=== PATIENT | male | born 1995 | race Caucasian/White ===

== ENCOUNTER 2020-05-26 14:58 | Observation (INO) | payer SELFPAY ==
--- NOTE | ~2020-05-26 | XR_ITS ---
EXAMINATION: XR chest 2V DATE: 05/26/2020 15:43 INDICATION: Transient alteration of awareness TECHNIQUE: AP and lateral views of the chest are obtained. COMPARISON: None available FINDINGS: The lungs are free of acute opacities. There is no pleural effusion or pneumothorax. The ca rdiomediastinal silhouette is normal. The visualized bones and soft tissues are unremarkable. IMPRESSION: 1. No acute cardiopulmonary abnormality. Reviewed, dictated and finalized at location A.
--- NOTE | ~2020-05-26 | CT_ITS ---
EXAMINATION: CT brain wo con INDICATION: Head injury, confusion COMPARISON: None TECHNIQUE: Standard unenhanced head CT. The dose-length product (DLP) was 605.33 mGy-cm. The mA was a djusted according to patient size. Iterative reconstruction technique was employed. FINDINGS: There is no intracranial hemorrhage, acute infarction, or abnormal mass lesion. The ventric les are normal. There is no abnormal mass effect or midline shift. The parmar-white matter differentiat ion is normal. The basal cisterns are patent. The orbits are normal. The paranasal sinuses, mastoids and calvarium are normal. IMPRESSION: 1. No acute intracranial abnormality. Reviewed, dictated and finalized at location A.
--- NOTE | 2020-05-26 15:02 | ED.GENADULT ---
HPI - General Adult General Chief complaint: Altered Mental Status Stated complaint: ams Time Seen by Provider: 05/26/20 15:02 Source: patient and EMS Mode of arrival: EMS Limitations: clinical condition History of Present Illness HPI narrative: Pt presented for evaluation of AMS. Patient history provided by EMS. Patient apparently on a full trip this weekend with friends. They were traveling back to where they are from, when friend friend who drove back patient from float trip called EMS after patient had seizure like activity today while in car. Shaking activity lasted approximately 1 minute. Per friend, patient had taken a Xanax bar. Patient with heavy alcohol intake this weekend per friend. Pt with emesis, pinpoint pupils for EMS. Pt agitated and slightly combative for EMS. Glucose 190. Patient given small dose of intranasal Narcan by EMS and transported to our facility for assessment. Related Data Home Medications Medication Instructions Recorded Confirmed No Home Medications 05/26/20 05/26/20 Allergies Allergy/AdvReac Type Severity Reaction Status Date / Time No Known Allergies Allergy Verified 05/26/20 15:15 Review of Systems Review of Systems: Narrative: Unable to obtain secondary to intoxication PMFSH Social History Social History Gender identity (if verbalized by the patient): Male Exam Narrative: Exam Narrative: GENERAL: Somnolent, minimally conversant HEAD: Normocephalic, abrasion to forehead and nasal bridge EYES: 1+ PERRLA and EOMI. ENT: Nares clear, no rhinorrhea or epistaxis. Mucous membranes dry NECK: Supple. CHEST: No respiratory distress, breathing even and non labored HEART: Tachycardic rate, sinus rhythm ABDOMEN:Non distended, non tender EXTREMITIES: Normal range of motion. No edema. SKIN: Warm, dry, no rash. NEURO:No focal deficits. Alert and oriented x 3, can identify name, knows he is at a hospital, he knows what month it is Course Vital Signs Vital signs: Vital Signs Temperature 36.8 C 05/26/20 15:09 Pulse Rate 125 H 05/26/20 15:09 Respiratory Rate 17 05/26/20 15:09 Blood Pressure 168/71 H 05/26/20 15:09 Pulse Oximetry 96 05/26/20 15:09 Temperature 36.8 C 05/26/20 15:09 Pulse Rate 125 H 05/26/20 15:09 Respiratory Rate 17 05/26/20 15:09 Blood Pressure 168/71 H 05/26/20 15:09 Pulse Oximetry 96 05/26/20 15:09 Medical Decision Making MDM Narrative Medical decision making narrative: Patient presented for evaluation of possible seizure-like activity in the history of known substance abuse. At the time of initial assessment, patient is slightly confused, but otherwise neurologically intact, alert and oriented to person, place and to time. Patient denying any pain. Laboratory results notable for leukocytosis and lactic acidosis. In the setting of tachycardia this is concerning for sepsis, will go ahead and give the patient 30 mL/kg and start IV section antibiotics. Lactic acidosis may be secondary to possible seizure-like activity versus substance abuse, and we could just have a leukemoid reaction from all the substance abuse and vomiting that the patient has been having. No acute kidney injury. CK is not elevated, not indicative of rhabdomyolysis. Patient tachycardia improved following fluids. At this point, patient would benefit from observation so we can trend vital signs and monitor patient for recurrent seizure activity. Patient does not have any seizure history. No UTI. Spoke with hospitalist, will hold off on neurology for now given seizure just may be due to dehydration and abuse. Patient admitted in stable condition to telemetry. Vital Signs Vital Signs: Vital Signs Temperature 36.8 C 05/26/20 15:09 Pulse Rate 125 H 05/26/20 15:09 Respiratory Rate 17 05/26/20 15:09 Blood Pressure 168/71 H 05/26/20 15:09 Pulse Oximetry 96 05/26/20 15:09 Temperature 36.8 C 05/26/20 15:09 Pulse Rate 125 H 05/26/20 15:09 Re
[2020-05-26 15:09] VITALS: BP 168/71; PULSE 125; RESP 17; TEMP 36.8; O2SAT 96
[2020-05-26 15:19] LABS: Hematocrit 50.4 % (42.0-52.0); Hemoglobin 17.1 g/dL (14.0-18.0); Mean Corpuscular HGB Conc 33.9 g/dl (32-36); Mean Corpuscular Hemoglobin 31.8 pg (26-34); Mean Corpuscular Volume 93.7 fl (80-100); Mean Platelet Volume 8.6 fl (7.4-10.4); Platelet Count Result 551 k/mm3 (150-375); Red Blood Count 5.38 M/mm3 (4.6-6.20); Red Cell Distribution Width 13.1 % (11.5-14.5); White Blood Count 26.6 K/mm3 (4.5-10.0)
--- NOTE | 2020-05-26 15:31 | ECG_ITS ---
Measurements Intervals Medon Rate: 128 P: 76 NC: 140 QRS: 110 QRSD: 96 T: 63 QT: 313 QTc: 457 Interpretive Statements SINUS TACHYCARDIA RIGHT AXIS DEVIATION INCOMPLETE RIGHT BUNDLE BRANCH BLOCK DELAYED PRECORDIAL R/S TRANSITION MINIMAL Q WAVES- ANTEROLAT/INF LEADS ABNORMAL ECG Electronically Signed On 05-26-2020 17:13:07 CDT by Vaughn Barfield D.O.
[2020-05-26 15:34] LABS: Ethanol < 10 mg/dL (<10)
[2020-05-26 15:37] LABS: Band Neutrophils Percent 2 % (0-6); Lymphocytes Absolute Manual 1.59 K/mm3 (1.1-4.5); Monocytes Absolute Manual 1.33 K/mm3 (0.1-0.90); Monocytes Percent Manual 5 % (3-9); Neutrophils Absolute Manual 23.67 K/mm3 (1.3-6.7); Neutrophils Percent Manual 87 % (46-73); Platelet Estimate Increased (Adequate); Total Cells Counted 100
[2020-05-26 15:47] LABS: Albumin Level 5.3 g/dL (3.5-5.1); Alkaline Phosphatase 179 U/L (38-126); Bilirubin,Total 0.8 mg/dL (0.2-1.3); Blood Urea Nitrogen 14 mg/dL (9-20); Calcium 9.7 mg/dL (8.4-10.2); Carbon Dioxide 10 mmol/L (22-30); Chloride 98 mmol/L (98-107); Estimated CRCL calculation 84 ml/min; Estimated Glomerular Filt Rate > 60; Glucose 264 mg/dL (75-110); Potassium 3.7 mmol/L (3.4-5.0); Sodium 138 mmol/L (137-145)
[2020-05-26 15:49] LABS: Magnesium 2.9 mg/dL (1.6-2.3); Phosphorus 5.1 mg/dL (2.5-4.5)
[2020-05-26] MEDS: SODIUM CHLORIDE 0.9% IV 1,000 ML 999 ML IV CONT (15:54)
[2020-05-26 15:57] LABS: Alanine Aminotransferase 46 U/L (4-50); Aspartate Amino Transferase 61 U/L (17-59)
[2020-05-26 15:58] LABS: INR 1.1; Partial Thromboplastin Time 23.5 SECONDS (22.3-36.8); Prothrombin Time 13.7 Seconds (11.1-14.7)
[2020-05-26 16:01] LABS: Troponin I < 0.012 ng/mL (0.000-0.034)
[2020-05-26 16:10] LABS: Lactic Acid Reflex 5.9 mmol/L (0.7-2.1)
[2020-05-26 16:37] LABS: Creatine Kinase 181 U/L (55-170)
[2020-05-26] MEDS: METOCLOPRAMIDE HCL INJ 10 MG/2 ML VIAL IV PUSH (16:45)
[2020-05-26 16:54] LABS: Add Urine Microscopic? YES; Appearance Urine Clear (Clear); Bilirubin Urine Negative (Negative); Blood Urine 1+ (Negative); Color Urine Straw (Yellow); Glucose Urine UA 1+ mg/dL (Negative); Ketones Urine 2+ mg/dL (Negative); Leukocyte Esterase Ur Negative LEU/UL (Negative); Mucus Urine Rare /lpf; Nitrate Urine Negative (Negative); Protein Urine 2+ mg/dL (Negative); Specific Grav Ur 1.021 (1.001-1.035); Squamous Epithelial Cell Urine Rare /hpf (Few); Urobilinogen Urine Negative mg/dL (<2.0); WBC Urine 0-3 /hpf
[2020-05-26 17:09] LABS: Amphetamine Screen Urine Negative (Negative); Barbiturate Screen Urine Negative (Negative); Benzodiazepines Screen Urine Negative (Negative); Cannabinoid Screen Urine Positive (Negative); Cocaine Screen Urine Negative (Negative); Methadone Screen Urine Negative (Negative); Opiate Screen Urine Negative (Negative); Phencyclidine Screen Urine Negative (Negative)
--- NOTE | 2020-05-26 18:00 | PM.IMHP ---
H&P: HPI History of Present Illness Chief complaint: Seizure. Narrative: Preet Latham is a previously healthy 25-year-old male who presented to the emergency department earlier this afternoon via EMS for evaluation of altered mental status after a seizure. His memory regarding the events that transpired today is poor, and as such some of this medical history is obtained via a review of his electronic medical records. The patient and his friends were on their way home from a float trip today and it sounds as though there was heavy amounts of alcohol consumption during the trip in addition to possible recreational drug use including marijuana, cocaine, and Xanax (according to friends). The patient began having nausea and vomiting today and not long prior to arrival to the emergency department he had a witnessed seizure lasting approximately 1 minutes time. On EMS arrival he was postictal and combative, but he is now alert and oriented and calm/cooperative. He does admit to drinking heavily and using marijuana, but he denies cocaine and Xanax use to me. Drug screen is positive for marijuana only. He is adamant that he does not use Xanax. With regards to alcohol, he admits to drinking almost every other day, typically in large quantities. He has never had signs or symptoms of alcohol withdrawal, however. Mother and brother both have epilepsy, but he has no history of seizures. At this time he is tired but has no other complaints. Review of Systems Review of Systems: Narrative: Twelve systems were reviewed with pertinent positives and negatives as per HPI. No fever, chills, or sweats. He did sustain abrasions and contusions to the nose and forehead during the seizure. He denies headache, auditory, and visual changes. No chest pain or shortness of breath. He denies cough. No cold or flu symptoms. No sick contacts. Except as documented, all other systems were reviewed and are negative. [facility] Past Medical History Medical History (Updated 05/26/20 @ 22:53 by Urmila Bunn PA-C) Alcohol abuse No significant past medical history Surgical History Surgical History (Updated 05/26/20 @ 22:48 by Urmila Bunn PA-C) No history of previous surgery Family History Family History (Updated 05/26/20 @ 22:49 by Urmila Bunn PA-C) Sibling Asthma Mother Asthma Epilepsy Sibling Epilepsy Social History Social History (Updated 05/26/20 @ 22:49 by Urmila Bunn PA-C) Social History: Surrogate decision maker: Marlys, grandmother. Code status: Full code. Smoking status: Never smoker Alcohol intake: current Drinks per week: 40 Substance use: current Substance use type: marijuana Additional living arrangements comments: The patient lives in [place], [place] with his grandparents. Additional occupation/education comments: He is not currently employed nor does he go to school. Gender identity (if verbalized by the patient): Male Spiritual care concerns: No Meds Home Medications and Allergies Home Medications Medication Instructions Recorded Confirmed Type No Home Medications 05/26/20 05/26/20 History Allergies Allergy/AdvReac Type Severity Reaction Status Date / Time No Known Allergies Allergy Verified 05/26/20 15:15 Vital Signs Vital Signs - 24 hr 05/26/20 15:09 05/26/20 18:23 05/26/20 18:47 Temperature 98.2 F 99.9 F H Pulse Rate 125 H 106 H 108 H Respiratory Rate 17 18 17 Blood Pressure 168/71 H 128/76 148/89 H Pulse Oximetry 96 96 100 05/26/20 21:48 Temperature 98.8 F Pulse Rate 110 H Respiratory Rate 16 Blood Pressure 122/69 Pulse Oximetry 99 Exam Narrative: Exam Narrative: General: Well-developed, mildly ill-appearing male lying on his left side in bed in no distress. HEENT: Contusions along the mid forehead. There is a small abrasion on the left side of the nasal bridge. Pupils are approximately 3 to 4 millimeters and are reactive
[2020-05-26 18:23] VITALS: BP 128/76; PULSE 106; RESP 18; O2SAT 96
[2020-05-26 18:47] VITALS: BP 148/89; PULSE 108; RESP 17; TEMP 37.7; O2SAT 100; BMI 18.3
--- NOTE | 2020-05-26 18:47 | ADMGEN ---
This patient, Preet Latham, was admitted to Medical Room 249-01. Patient/family oriented to hospital policies and general routines including ID bracelet, bed and alarms, visiting hours, pain management, procedures, bathroom and other care routines, personal items, smoking policy, room service/diet, and visiting hours. Valuables list has been completed. Information on how to activate the Rapid Response Team has been discussed. Patient/Family are encouraged to report perceived risks to care and to ask questions if they do not understand what they are told or what they should do.
[2020-05-26 18:51] LABS: Reflex Lactic Acid Yes or No Add Lactic
[2020-05-26 19:13] LABS: Lactic Acid 1.4 mmol/L (0.7-2.1)
[2020-05-26 19:28] LABS: Troponin I 0.044 ng/mL (0.000-0.034)
[2020-05-26 19:48] LABS: Hemoglobin A1C 5.1 % (<5.7)
[2020-05-26 20:00] VITALS: PULSE 103
[2020-05-26] MEDS: ONDANSETRON INJ 4 MG/2 ML VIAL IV PUSH (20:23)
[2020-05-26 21:48] VITALS: BP 122/69; PULSE 110; RESP 16; TEMP 37.1; O2SAT 99
[2020-05-26 22:13] LABS: Blood Urea Nitrogen 12 mg/dL (9-20); CRP 0.8 mg/dL (<1.0); Calcium 8.4 mg/dL (8.4-10.2); Carbon Dioxide 22 mmol/L (22-30); Chloride 102 mmol/L (98-107); Creatine Kinase 253 U/L (55-170); Estimated CRCL calculation 101 ml/min; Estimated Glomerular Filt Rate > 60; Glucose 135 mg/dL (75-110); Lactate Dehydrogenase 470 U/L (313-618); Potassium 3.9 mmol/L (3.4-5.0); Sodium 135 mmol/L (137-145)
[2020-05-26 22:26] LABS: Troponin I 0.046 ng/mL (0.000-0.034)
[2020-05-27] VITALS: PULSE 93
[2020-05-27] MEDS: SODIUM CHLORIDE 0.9% IV 1,000 ML 125 ML IV CONT ×2 (00:19→06:08)
[2020-05-27] MEDS: ONDANSETRON INJ 4 MG/2 ML VIAL IV PUSH (01:20)
[2020-05-27] MEDS: FAMOTIDINE 20 MG/2 ML VIAL IV PUSH ×2 (02:58→07:45)
[2020-05-27] MEDS: SUCRALFATE SUSP 100 MG/ML 10 ML UDC 1000 MG PO ×2 (02:58→06:08)
[2020-05-27 04:00] VITALS: PULSE 77
[2020-05-27 05:33] LABS: Basophils Percent Auto 0.2 % (0.2-1.2); Eosinophils Percent Auto 0.1 % (0-4.4); Hematocrit 39.9 % (42.0-52.0); Hemoglobin 13.8 g/dL (14.0-18.0); Immature Granulocyte Absolute 0.08 K/mm3 (0.00-0.031); Immature Granulocyte Percent A 0.4 % (0-0.5); Lymphocytes Absolute Auto 1.21 K/mm3 (0.9-3.2); Lymphocytes Percent Auto 6.5 % (18.3-44.2); Mean Corpuscular HGB Conc 34.6 g/dl (32-36); Mean Corpuscular Hemoglobin 31.5 pg (26-34); Mean Corpuscular Volume 91.1 fl (80-100); Mean Platelet Volume 8.6 fl (7.4-10.4); Monocytes Absolute Auto 1.7 K/mm3 (0.1-0.6); Monocytes Percent Auto 9.4 % (2.6-8.5); Neutrophils Absolute Auto 15.5 K/mm3 (1.3-6.7); Neutrophils Percent Auto 83.4 % (45.5-73.1); Platelet Count Result 359 k/mm3 (150-375); Red Blood Count 4.38 M/mm3 (4.6-6.20); Red Cell Distribution Width 13.1 % (11.5-14.5); White Blood Count 18.6 K/mm3 (4.5-10.0)
[2020-05-27 05:43] LABS: INR 1.1; Partial Thromboplastin Time 25.9 SECONDS (22.3-36.8); Prothrombin Time 14.1 Seconds (11.1-14.7)
[2020-05-27 06:00] VITALS: BP 115/72; PULSE 89; RESP 14; TEMP 37; O2SAT 98
[2020-05-27] MEDS: FOLIC ACID 1 MG TABLET PO (07:45)
[2020-05-27] MEDS: THIAMINE HCL 100 MG TABLET PO (07:46)
[2020-05-27] MEDS: THERAPEUTIC MULTIVITAMINS/MINERALS TAB (*BKC) 1 TABLET PO (07:46)
[2020-05-27 07:49] VITALS: PULSE 94
[2020-05-27 08:00] VITALS: PULSE 68
[2020-05-27 08:35] LABS: Alanine Aminotransferase 28 U/L (4-50); Albumin Level 4.1 g/dL (3.5-5.1); Alkaline Phosphatase 123 U/L (38-126); Aspartate Amino Transferase 41 U/L (17-59); Bilirubin,Total 0.9 mg/dL (0.2-1.3); Blood Urea Nitrogen 8 mg/dL (9-20); Calcium 8.5 mg/dL (8.4-10.2); Carbon Dioxide 29 mmol/L (22-30); Chloride 102 mmol/L (98-107); Creatine Kinase 335 U/L (55-170); Estimated CRCL calculation 114 ml/min; Estimated Glomerular Filt Rate > 60; Glucose 109 mg/dL (75-110); Magnesium 2.1 mg/dL (1.6-2.3); Potassium 3.3 mmol/L (3.4-5.0); Sodium 137 mmol/L (137-145)
--- NOTE | 2020-05-27 10:55 | PC.NURSE ---
PT REFUSING EEG, WILL NOTIFY CODEY AGUILAR
--- NOTE | 2020-05-27 12:07 | PM.DS ---
DS: Admitting Diagnosis Admitting Diagnosis Admitting Diagnosis: Unspecified convulsions DS: Discharge Diagnosis Discharge Diagnosis (1) Seizure: Code(s): R56.9 - Unspecified convulsions Status: Acute Assessment and Plan: Patient had a witnessed seizure by friends of unclear etiology, however alcohol withdrawal is suspected as his ethyl alcohol level was <10. His head CT was negative. His friends also reported drug use including Xanax, however his urine drug screen was negative for benzodiazepines and was positive only for cannabinoids. He does have a family history of epilepsy. He was seen in consultation by Neurology, however he refused EEG. He is not from the area, and he requested to return home and follow-up with a neurologist in [place], [place]. (2) Leukocytosis: Code(s): D72.829 - Elevated white blood cell count, unspecified Status: Acute Assessment and Plan: White count was 26.6 at presentation, likely leukemoid reaction due to the seizure. WBC declined. There was no evidence of underlying infection and this was not suspected. (3) Hyperglycemia: Code(s): R73.9 - Hyperglycemia, unspecified Status: Acute Assessment and Plan: Random glucose was elevated at 264. This may have been a stress response secondary to his seizure. Repeat glucose was lower and fasting glucose was 109. His A1c was 5.0. (4) Dehydration: Code(s): E86.0 - Dehydration Status: Acute Assessment and Plan: Secondary to excess alcohol use. He was rehydrated with IV fluids and was euvolemic. (5) Alcohol abuse: Code(s): F10.10 - Alcohol abuse, uncomplicated Status: Acute Assessment and Plan: He is a binge drinker however denies ever having signs or symptoms of alcohol withdrawal. Suspect his seizure may have been related to alcohol withdrawal, however. He was started on thiamine and folic acid, which he will continue as an outpatient. Reduction in alcohol consumption was discussed with him and recommended 2 drinks or less per day. We also discussed signs and symptoms of alcohol withdrawal for which he should seek medical care. DS: Summary Hospital Course Reason for hospitalization: Seizure Hospital Course: Date of admission: 05/26/2020 Date of discharge: 05/27/2020 Preet Latham is a previously healthy 25-year-old male who presented to the emergency department on 05/27/2020 for evaluation of altered mental status following a seizure lasting approximately 1 minute witnessed by friends. He lives in [place], [place] and was returning home from a float trip in [place] during which he consumed heavy amounts of alcohol and possibly some recreational drugs as reported by friends. He has a family history of epilepsy in his mother and his brother, although he has never had a seizure. At presentation, BP 168/71, HR 125, WBC 26.6, Hgb 17.1, hct 50.4, platelets 551, glucose 264, magnesium 2.9, troponin <0.012, CK 181, lactic acid 5.9, ethyl alcohol <10, UDS positive for cannabinoids, head CT and chest x-ray unremarkable. He was admitted to the hospitalist service and seen in consultation by neurology with workup as noted above. His troponin levels increased mildly but were flat and his CK was mildly increased, both thought to be related to seizure activity. His lactic returned to normal limits. He refused EEG and was anxious to return home, where he would like to follow-up with a neurologist. Given stabilization and clinical improvement, he was determined to no longer require inpatient care. He was discharged home in hemodynamically stable condition on the afternoon of 05/27/2020 with his mother who will drive him. We discussed not driving until he is evaluated by his doctor. He had no additional concerns at all of his questions were answered. Status at Discharge Functional status at discharge: independent ambulation Overall status at discharge: patient is back to
[2020-05-27] MEDS: POTASSIUM CHLORIDE 20 MEQ TABLET PO (12:17)
--- NOTE | 2020-05-27 13:23 | CONS_ITS ---
DATE OF CONSULTATION: HISTORY OF PRESENT ILLNESS: A 25-year-old right-handed male has been admitted to [facility] through the emergency room where he was brought by the EMS for the complaints of change in mental status subsequent to a seizure. Most of the information was obtained from the electronic medical records by the initial physician. Reportedly, the patient friends were on the way home from float trip with the heavy amount of alcohol consumption during the trip in addition to possible recreational drug use including marijuana, cocaine, and Xanax. The patient has started nausea and vomiting and not long prior to arrival to the emergency room, he had witnessed seizure for about 1 minute. When the EMS arrived to the scene, he was postictal and definitely combative. By the time he came to the ER here, awake, alert, oriented, calm and cooperative. He admitted drinking heavy and using marijuana, but he denied coke and Xanax. Drug screen was only positive for the marijuana. He drinks alcohol almost every other day, though he has never had any alcohol withdrawal symptoms in the past. His mother and brother are known to be epileptic. He was noted to have abrasions and contusion to the nose and forehead during the seizure. PAST HISTORY: Fairly nonsignificant otherwise. SOCIAL HISTORY: He is a never smoker, current alcohol drinker, 40 drinks per week and also current substance abuser including marijuana. He is not employed. Does not go to school. MEDICATIONS: He has no home medication. ALLERGIES: NO DRUG ALLERGIES. PHYSICAL EXAMINATION: VITAL SIGNS: Evaluation up until now documented him to be afebrile with pulse 125, respirations 17, blood pressure 168/71, repeat 148/89, pulse ox 100%, temperature 98.0. GENERAL: Examination otherwise revealed him to be awake, alert, well developed, in no obvious acute distress. HEENT: Head with a contusion along the mid forehead and abrasion on the left side of the nasal bridge. Ears, nose, throat examination normal. NECK: Supple with no cervical bruit. No thyromegaly. No lymphadenopathy. HEART: Regular. LUNGS: Clear. ABDOMEN: Soft with no organomegaly. NEUROLOGICAL: He is awake, alert, and oriented. Pupils round and regular. Jacobo of vision full. Extraocular movements full. Face symmetrical. Tongue midline. Motor examination revealed him to have no drift of 1 side or other side. Reflexes symmetrical. Plantars downgoing. LABORATORY DATA: Evaluation up until now documented CBC with WBCs 26.6, hemoglobin 17.1, platelet count 551. Basic metabolic panel normal with initial glucose of 264, but coming down to 135 on the repeat. Troponin less than 0.12, but repeat was 0.044 and CK was 181. Hepatic enzymes, alkaline phosphate 179, albumin 5.3. UA with 2+ protein and 1+ glucose. Initial CT scan negative for the bleed. Chest x-ray negative for acute finding. INITIAL IMPRESSION: Alcohol withdrawal seizure. The patient up until now has had head CT scan as mentioned before, which is negative. Chest x-ray negative. His blood cultures were drawn, they are up until now pending. We will obtain the EEG and further recommendation accordingly. FELIPE PARK M.D. HOUSE CALLS NURSE PRACTITIONER HOUSE CALLS NURSE PRACTITIONER D I MT: Dinorah
== END 2020-05-27 12:40 | disposition home or self-care (01) ==
LOC: ANHED 17:04 → ANH2MED 17:47
PROVIDERS: Physician Assistant; Admitting Provider Internal Medicine; Emergency Provider Emergency Medicine; Visit Provider Family Medicine
DX: R56.9 Unspecified convulsions (principal); R41.82 Altered mental status, unspecified; D72.829 Elevated white blood cell count, unspecified; R73.9 Hyperglycemia, unspecified; E86.0 Dehydration; F10.10 Alcohol abuse, uncomplicated; Y90.0 Blood alcohol level of less than 20 mg/100 ml; R82.5 Elevated urine levels of drugs, medicaments and biological substances; Z82.0 Family history of epilepsy and other diseases of the nervous system
CPT/HCPCS: 36415; 70450; 71046; 80048; 80053; 80307; 81001; 82550; 82728; 83036; 83605; 83615; 83735; 84100; 84443; 84484; 85025; 85610; 85730; 86140; 87040; 87077; 93005; 96361; 96365; 96366; 96367; 96375; 96376; 99285; A9270; G0378; G0379; J0692; J2310; J2405; J2765; J3370; J3411; J3475; J7030; J7121